=== PATIENT | female | born 1990 | race Asian ===

== ENCOUNTER 2024-02-07 20:13 | Inpatient (IN) | payer OTHER ==
[2024-02-07] MEDS ORDERED: Methylergonovine 0.2 MG/ML VIAL IM PRN (22:36)
[2024-02-07] MEDS ORDERED: Diphenoxylate HCl/Atropine Tablet PO PRN ×2 (22:36)
[2024-02-07] MEDS ORDERED: Carboprost 250 MCG/ML AMP IM PRN (22:36)
[2024-02-07] MEDS ORDERED: Acetaminophen 500 MG TAB PO PRN (22:36)
[2024-02-07] MEDS ORDERED: Misoprostol 200 MCG TAB PR PRN (22:36)
[2024-02-07] MEDS ORDERED: Tranexamic Acid 1,000 MG/10 ML VIAL IVP PRN (22:36)
[2024-02-07] MEDS ORDERED: fentaNYL 50 mcg/mL 1 mL Vial SLOW IVP PRN (22:36)
[2024-02-07] MEDS ORDERED: hydrALAZINE 20 MG/ML VIAL SLOW IVP PRN (22:36)
[2024-02-07] MEDS ORDERED: Ibuprofen 800 MG TAB PO PRN (22:36)
[2024-02-07] MEDS ORDERED: Zolpidem Tartrate 5 MG TAB PO PRN (22:36)
[2024-02-07] MEDS ORDERED: Lidocaine 1% (PF) 30 ML VIAL SC PRN (22:36)
[2024-02-07] MEDS ORDERED: HYDROcodone/Acetaminophen 5/325 mg Tablet PO PRN ×2 (22:36)
[2024-02-07] MEDS ORDERED: Promethazine HCl 25 MG/ML VIAL IM PRN (22:36)
[2024-02-07 22:47] VITALS: BMI 34.1
[2024-02-07] MEDS ORDERED: Oxytocin 30 units/NS 500 ML 500 ML IV SCH (23:00)
[2024-02-07] MEDS: Lactated Ringer's 1,000 ML IV SCH (23:07)
[2024-02-07] MEDS: Misoprostol 100 MCG TAB VAG SCH (23:26)
[2024-02-07 23:46] LABS: Hematocrit 36.1 % (34.9-44.5); Hemoglobin 12.7 g/dL (12.0-15.5); Mean Corpuscular HGB CONC 35.2 g/dL (32.0-36.0); Mean Corpuscular Volume 85.1 fL (81.6-98.3); Mean Platelet Volume 10.7 fL (7.4-10.4); Platelet Count 246 10x3/uL (150-450); RBC Distribution Width 12.2 % (11.5-14.5); Red Blood Cell (RBC) Count 4.24 10x6/uL (3.90-5.03)
[2024-02-08 00:24] LABS: Syphilis Antibody Nonreactive (Nonreactive); Syphilis Antibody Index 0.06 S/CO (<1.00 Non-Reactive)
[2024-02-08 00:25] LABS: HBsAg Index 0.16 S/CO (0-0.99); Hep B Surf Ag - L&D Non-Reactive S/CO (NonReactive)
[2024-02-08] MEDS: Penicillin G Potassium 5 MILL.UNITS in Sodium Chloride 0.9% 100 ML IVPB SCH (05:35)
[2024-02-08] MEDS: Penicillin G Potassium 5 MILL.UNITS VIAL ONE (05:39)
[2024-02-08] MEDS: Penicillin G 2.5 MILL.units 2.5 MILL.UNITS in Premix 1 BAG IVPB SCH (05:39)
[2024-02-08] MEDS: Oxytocin 30 units/NS 500 ML 500 ML IV SCH (08:43)
[2024-02-08] MEDS: fentaNYL/Ropivacaine Epidural 100 ML ONE (09:09)
[2024-02-08] MEDS ORDERED: Lactated Ringer's 500 ML IV PRN (09:41)
[2024-02-08] MEDS ORDERED: Moisturizing Cream (Eucerin) 113 GM JAR TOP PRN (09:41)
[2024-02-08] MEDS ORDERED: ePHEDrine Sulfate 50 MG/10 ML VIAL SLOW IVP PRN (09:41)
[2024-02-08] MEDS ORDERED: Naloxone HCl 0.4 mg/ml Vial IVP PRN ×2 (09:41)
[2024-02-08] MEDS ORDERED: diphenhydrAMINE 50 MG/ML VIAL IVP PRN (09:41)
[2024-02-08] MEDS ORDERED: Acetaminophen 325 MG TAB PO PRN (09:41)
[2024-02-08] MEDS ORDERED: Ondansetron PF 4 MG/2 ML Vial IVP PRN (09:41)
[2024-02-08] MEDS ORDERED: Promethazine HCl 25 MG/ML VIAL IM PRN (09:41)
[2024-02-08] MEDS ORDERED: fentaNYL 2 mcg/Ropivacaine 0.2% Epidural 100 ML CADD EPIDURAL SCH (09:45)
[2024-02-08] MEDS ORDERED: Communication Order-Pharmacy FS SCH (09:45)
[2024-02-08 10:49] LABS: Analyzer IN Cardio CS NICU; RapidComm Collect By cbn
[2024-02-08 10:50] LABS: Analyzer IN Cardio CS NICU; RapidComm Collect By CBN; pH (Cord, venous) 7.282 (7.250-7.350)
[2024-02-08] MEDS: Ondansetron PF 4 MG/2 ML Vial IVP PRN (13:06)
[2024-02-08 14:13] LABS: Hematocrit 29.8 % (34.9-44.5); Hemoglobin 10.1 g/dL (12.0-15.5); Mean Corpuscular HGB CONC 33.9 g/dL (32.0-36.0); Mean Corpuscular Hemoglobin 29.7 pg (27.0-33.0); Mean Corpuscular Volume 87.6 fL (81.6-98.3); Mean Platelet Volume 10.8 fL (7.4-10.4); Platelet Count 200 10x3/uL (150-450); RBC Distribution Width 12.1 % (11.5-14.5); White Blood Cell (WBC) Count 11.8 10x3/uL (3.5-10.5)
[2024-02-08] MEDS ORDERED: hydrALAZINE 20 MG/ML VIAL SLOW IVP PRN (14:55)
[2024-02-08] MEDS ORDERED: Bisacodyl 10 MG SUPP PR PRN (14:55)
[2024-02-08] MEDS ORDERED: Preparation H Ointment 28 GM TUBE PR PRN (14:55)
[2024-02-08] MEDS: Benzocaine-Menthol 82.5 ML CAN TOP PRN (16:17)
[2024-02-08] MEDS: traMADol HCl 50 MG TAB PO PRN (16:17)
[2024-02-08] MEDS: Ferrous Sulfate 325 MG TAB PO SCH (16:18)
[2024-02-08] MEDS: Docusate 100 MG CAP PO SCH (19:54)
[2024-02-08] MEDS: Ibuprofen 800 MG TAB PO SCH (19:54)
[2024-02-09] MEDS: Boostrix 0.5 ML (Tdap) VIAL (>/=7 yrs of age) IM ONE (08:38)
[2024-02-09] MEDS: Prenatal Vitamin 1 TAB PO SCH (08:38)
[2024-02-10 07:34] VITALS: BP 103/56; TEMP 99.3
[2024-02-10] MEDS: Milk Of Magnesia 30 ML UDCUP PO PRN (09:12)
== END 2024-02-10 13:40 | disposition home or self-care (01) | DRG 807 ==
LOC: CSHLD 20:13 → CSHPP 02-08 14:30
PROVIDERS: ADMIT Obstetrics & Gynecology; ATTEND Obstetrics & Gynecology
PROC: 3E0P7VZ Introduction of Hormone into Female Reproductive, Via Natural or Artificial Opening (ICD-10-PCS; 2024-02-07)
PROC: 10D07Z3 Extraction of Products of Conception, Low Forceps, Via Natural or Artificial Opening (ICD-10-PCS; principal; 2024-02-08)
PROC: 0KQM0ZZ Repair Perineum Muscle, Open Approach (ICD-10-PCS; 2024-02-08)
DX: O99.284 Endocrine, nutritional and metabolic diseases complicating childbirth (principal); Z37.0 Single live birth; O99.824 Streptococcus B carrier state complicating childbirth; O76 Abnormality in fetal heart rate and rhythm complicating labor and delivery; O64.0XX0 Obstructed labor due to incomplete rotation of fetal head, not applicable or unspecified; Z3A.39 39 weeks gestation of pregnancy; O69.2XX0 Labor and delivery complicated by other cord entanglement, with compression, not applicable or unspecified; O90.89 Other complications of the puerperium, not elsewhere classified; R33.9 Retention of urine, unspecified; O70.1 Second degree perineal laceration during delivery
CPT/HCPCS: 36415; 51702; 82805; 85027; 86780; 86850; 86900; 86901; 87340; J2405; J2540; J2590; J3490; J7120